=== PATIENT | female | born 1950 | race Caucasian/White ===

== ENCOUNTER → 2017-07-02 | Outpatient (CLI) | payer MEDICARE, OTHER ==
--- NOTE | 2017-07-02 14:36 | BD ---
EXAMINATION TYPE: MG DEXA axial skeleton. DATE OF EXAM: 07/02/2017 COMPARISON: NONE CLINICAL HISTORY: Postmenopausal female. Osteoporosis screening. Height: 5 FT 4 1/4 IN Weight: 212 FRAX RISK QUESTIONS: Alcohol (3 or more units per day): NO Family History (Parent hip fracture): NO Glucocorticoids (More than 3mos): NO (Ex: prednisone, prednisolone, methylprednisolone, dexamethasone, and hydrocortisone). History of Fracture in Adulthood: YES Secondary Osteoporosis: 1. Type 1 Diabetes: NO 2. Hyperthyroidism: NO 3. Menopause before 45: NO 4. Malnutrition: NO 5. Chronic liver disease: NO Rheumatoid Arthritis: NO Current Tobacco Use: NO RISK FACTORS HISTORY OF: History of Wrist Fracture: LT When: AROUND 31 Family History of Osteoporosis: YES Active: YES Postmenopausal woman: AGE 48 Lost more than 2 inches in height since high school: YES MEDICATIONS: How Long: Additional Medications: NONE Additional History: EXAM MEASUREMENTS: Bone mineral densitometry was performed using the [employer] System. Bone mineral density as measured about the Lumbar spine is: ----- L1-L4(G/cm2): 1.094 T Score Values are as follows: ----- L2: -0.5 ----- L3: -0.5 ----- L4: -0.6 ----- L1-L4: -0.7 Bone mineral density has: INCREASED 2.7 % since study of: 2013 Bone mineral density about the R hip (g/cm2): 0.767 Bone mineral density about the L hip (g/cm2): 0.860 T Score values are as follows: -----R Neck: -1.9 -----L Neck: -1.3 -----R Total: -1.4 -----L Total: -0.6 Bone mineral density has: DECREASED -1.1 % since study of: 2013 IMPRESSION: Osteopenia (T Score between -2.5 and -1). There is slightly increased risk of fracture and the patient may be considered for treatment. Re-Screen 2-5 years. NOTE: T-SCORE=SD OF THE YOUNG ADULT MEAN.
--- NOTE | 2017-07-03 14:58 | MM ---
Reason for exam: screening (asymptomatic). Last mammogram was performed 4 years ago. History: Patient is postmenopausal and had first child at age 37. Family history of breast cancer in paternal aunt. Benign stereotactic core biopsy of the left breast, January 19, 2004. Benign excisional biopsy of the left breast, September 24, 2001. Core biopsy of the left breast. Physical Findings: A clinical breast exam by your physician is recommended on an annual basis and results should be correlated with mammographic findings. MG 3D Screening Mammo W/Cad Bilateral CC and MLO view(s) were taken. Prior study comparison: June 21, 2013, bilateral digital screening mammo w/CAD. February 13, 2012, bilateral digital screening mammo w/CAD. There are scattered fibroglandular densities. There is no discrete abnormality. No significant changes when compared with prior studies. ASSESSMENT: Negative, BI-RAD 1 RECOMMENDATION: Routine screening mammogram of both breasts in 1 year.
== END | disposition home or self-care (01) ==
LOC: RADMAMWWP 13:33
PROVIDERS: ATTEND Family Medicine
DX: Z12.31 Encounter for screening mammogram for malignant neoplasm of breast (principal); M85.88 Other specified disorders of bone density and structure, other site
CPT/HCPCS: 77063; 77067; 77080

== ENCOUNTER → 2018-07-05 | Outpatient (CLI) | payer MEDICARE ==
--- NOTE | 2018-07-07 11:41 | MM ---
Reason for exam: screening (asymptomatic). Last mammogram was performed 1 year ago. History: Patient is postmenopausal and had first child at age 37. Family history of breast cancer in paternal aunt. Benign stereotactic core biopsy of the left breast, January 19, 2004. Benign excisional biopsy of the left breast, September 24, 2001. Core biopsy of the left breast. Physical Findings: A clinical breast exam by your physician is recommended on an annual basis and results should be correlated with mammographic findings. MG 3D Screening Mammo W/Cad Bilateral CC and MLO view(s) were taken. Prior study comparison: July 02, 2017, bilateral MG 3d screening mammo w/cad. June 21, 2013, bilateral digital screening mammo w/CAD. There are scattered fibroglandular densities. Previous mammotome biopsy in the left breast. There is chronic nodularity in the right breast. No significant changes when compared with prior studies. ASSESSMENT: Negative, BI-RAD 1 RECOMMENDATION: Routine screening mammogram of both breasts in 1 year.
== END ==
LOC: RADMAMWWP 07:17
PROVIDERS: ATTEND Family Medicine
DX: Z12.31 Encounter for screening mammogram for malignant neoplasm of breast (principal)
CPT/HCPCS: 77063; 77067

== ENCOUNTER 2020-01-20 09:16 | Emergency (ER) | payer MEDICARE ==
[2020-01-20] MEDS ORDERED: SODIUM CHLORIDE 0.9% 1,000 ML IV ONE (10:00)
--- NOTE | 2020-01-20 10:22 | ED ---
Weakness HPI - General Chief complaint: Weakness Stated complaint: weakness Time Seen by Provider: 01/20/20 09:25 Source: patient Mode of arrival: wheelchair Limitations: no limitations - History of Present Illness Initial comments: 69-year-old female presenting today for chief complaint of generalized weakness. Patient states she has no other symptoms besides feeling increased tired fatigue and generalized weakness she denies localized weakness she denies headaches neck stiffness fevers cough congestion nausea vomiting diarrhea chest pain shortness of breath visual changes patient denies any fall secondary to weakness. Patient denies any back pain. Patient denies abdominal pain, urinary symptoms denies bloody stools. Patient states she did have some congestion last Thursday other than that no symptoms. Patient denies having any thyroid disorder she denies history of anemia she denies any previous heart history or CVA. Patient states she does not take any medications for diabetes or hypertension. She states she also has had decreased appetite but otherwise just weak and going to bed at 7pm for past 4-5 days. - Related Data Home Medications Medication Instructions Recorded Confirmed Bacillus Coagulans [Digestive 1 tab PO DAILY 01/20/20 01/20/20 Advantage] Fluvastatin Sodium 20 mg PO DAILY 01/20/20 01/20/20 Multivitamins, Thera [Multivitamin 1 tab PO DAILY 01/20/20 01/20/20 (formulary)] Allergies Allergy/AdvReac Type Severity Reaction Status Date / Time codeine Allergy Hallucinati Verified 01/20/20 10:05 ons Review of Systems ROS Statement: Those systems with pertinent positive or pertinent negative responses have been documented in the HPI. ROS Other: All systems not noted in ROS Statement are negative. Past Medical History Past Medical History: Hyperlipidemia History of Any Multi-Drug Resistant Organisms: None Reported Past Surgical History: Cholecystectomy Past Psychological History: No Psychological Hx Reported Smoking Status: Never smoker Past Alcohol Use History: None Reported Past Drug Use History: None Reported General Exam - General Exam Comments Initial Comments: General: The patient is awake and alert, in no distress Eye: Pupils are equal, round and reactive to light, extra-ocular movements are intact. No nystagmus. There is normal conjunctiva bilaterally. No signs of icterus. Ears, nose, mouth and throat: There are moist mucous membranes and no oral lesions. Neck: The neck is supple, there is no tenderness or JVD. Cardiovascular: There is a regular rate and rhythm. No murmur, rub or gallop is appreciated. Respiratory: Lungs are clear to auscultation, respirations are non-labored, breath sounds are equal. No wheezes, stridor, rales, or rhonchi. Gastrointestinal: Soft, non-distended, non-tender abdomen without masses or organomegaly noted. There is no rebound or guarding present Musculoskeletal: Normal ROM, no tenderness. Strength 5/5. Sensation intact. Radial pulses equal bilaterally 2+. Neurological: A&O x 3. CN II-XII intact, There are no obvious motor or sensory deficits. Coordination appears grossly intact. Speech is normal. Skin: Skin is warm and dry and no rashes or lesions are noted. No LE edema, no calf pain. Psychiatric: Cooperative, appropriate mood & affect, normal judgment. Limitations: no limitations Course Vital Signs 01/20/20 01/20/20 09:17 12:10 Temperature 98.9 F 97 F L Pulse Rate 82 74 Respiratory 20 18 Rate Blood Pressure 133/80 141/75 O2 Sat by Pulse 94 L Oximetry Medical Decision Making - Medical Decision Making Labz stable. UA unremarkable. no CP no SOB. troponin (-). CXR clear. No ekg changes concerning for acute process. pt appears nontoxic. covid pending. TSH WNL. and at this time after discussing/reviewing case with attending Asa we feel pateint is stable for discharge. - Lab Data Result diagrams: 01/20/20 10:01/20/20 10:09 Lab Results 01/20/20 01/20/20 01/20/20 Range/Units 10:09 10:09 10:09 WBC 6.4 (3.8-10.6) k/uL RBC 5.25 (3.80-5.40) m/uL Hgb 14.6 (11.4-16.0) gm/dL Hct 43.9 (34.0-46.0) % MCV 83.6 (80.0-100.0) fL MCH 27.9 (25.0-35.0) pg MCHC 33.3 (31.0-37.0) g/dL RDW 13.4 (11.5-15.5) % Plt Count 147 L (150-450) k/uL MPV 7.3 Neutrophils % 70 % Lymphocytes % 19 % Monocytes % 8 % Eosinophils % 0 % Basophils % 1 % Neutrophils # 4.5 (1.3-7.7) k/uL Lymphocytes # 1.2 (1.0-4.8) k/uL Monocytes # 0.5 (0-1.0) k/uL Eosinophils # 0.0 (0-0.7) k/uL Basophils # 0.0 (0-0.2) k/uL PT 9.7 (9.0-12.0) sec INR 0.9 (<1.2) APTT 24.4 (22.0-30.0) sec Sodium (137-145) mmol/L Potassium (3.5-5.1) mmol/L Chloride (98-107) mmol/L Carbon Dioxide (22-30) mmol/L Anion Gap mmol/L BUN (7-17) mg/dL Creatinine (0.52-1.04) mg/dL Est GFR (CKD-EPI)AfAm (>60 ml/min/1.73 sqM) Est GFR (CKD-EPI)NonAf (>60 ml/min/1.73 sqM) Glucose (74-99) mg/dL Plasma Lactic Acid Terrell (0.7-2.0) mmol/L Calcium (8.4-10.2) mg/dL Phosphorus (2.5-4.5) mg/dL Magnesium (1.6-2.3) mg/dL Total Bilirubin (0.2-1.3) mg/dL AST (14-36) U/L ALT (4-34) U/L Alkaline Phosphatase (38-126) U/L Troponin I (0.000-0.034) ng/mL Total Protein (6.3-8.2) g/dL Albumin (3.5-5.0) g/dL TSH (0.465-4.680) mIU/L Urine Color Yellow Urine Appearance Clear (Clear) Urine pH 5.0 (5.0-8.0) Ur Specific [place] 1.015 (1.001-1.035) Urine Protein Negative (Negative) Urine Glucose (UA) Negative (Negative) Urine Ketones Negative (Negative) Urine Blood Negative (Negative) Urine Nitrite Negative (Negative) Urine Bilirubin Negative (Negative) Urine Urobilinogen <2.0 (<2.0) mg/dL Ur Leukocyte Esterase Negative (Negative) 01/20/20 01/20/20 01/20/20 Range/Units 10:09 10:09 10:09 WBC (3.8-10.6) k/uL RBC (3.80-5.40) m/uL Hgb (11.4-16.0) gm/dL Hct (34.0-46.0) % MCV (80.0-100.0) fL MCH (25.0-35.0) pg MCHC (31.0-37.0) g/dL RDW (11.5-15.5) % Plt Count (150-450) k/uL MPV Neutrophils % % Lymphocytes % % Monocytes % % Eosinophils % % Basophils % % Neutrophils # (1.3-7.7) k/uL Lymphocytes # (1.0-4.8) k/uL Monocytes # (0-1.0) k/uL Eosinophils # (0-0.7) k/uL Basophils # (0-0.2) k/uL PT (9.0-12.0) sec INR (<1.2) APTT (22.0-30.0) sec Sodium 138 (137-145) mmol/L Potassium 4.5 (3.5-5.1) mmol/L Chloride 105 (98-107) mmol/L Carbon Dioxide 27 (22-30) mmol/L Anion Gap 6 mmol/L BUN 15 (7-17) mg/dL Creatinine 0.82 (0.52-1.04) mg/dL Est GFR (CKD-EPI)AfAm 85 (>60 ml/min/1.73 sqM) Est GFR (CKD-EPI)NonAf 74 (>60 ml/min/1.73 sqM) Glucose 119 H (74-99) mg/dL Plasma Lactic Acid Terrell 1.0 (0.7-2.0) mmol/L Calcium 8.8 (8.4-10.2) mg/dL Phosphorus 4.0 (2.5-4.5) mg/dL Magnesium 2.0 (1.6-2.3) mg/dL Total Bilirubin 0.7 (0.2-1.3) mg/dL AST 35 (14-36) U/L ALT 22 (4-34) U/L Alkaline Phosphatase 87 (38-126) U/L Troponin I <0.012 (0.000-0.034) ng/mL Total Protein 7.3 (6.3-8.2) g/dL Albumin 4.1 (3.5-5.0) g/dL TSH 0.885 (0.465-4.680) mIU/L Urine Color Urine Appearance (Clear) Urine pH (5.0-8.0) Ur Specific [place] (1.001-1.035) Urine Protein (Negative) Urine Glucose (UA) (Negative) Urine Ketones (Negative) Urine Blood (Negative) Urine Nitrite (Negative) Urine Bilirubin (Negative) Urine Urobilinogen (<2.0) mg/dL Ur Leukocyte Esterase (Negative) Disposition Clinical Impression: Fatigue, Generalized weakness Disposition: HOME SELF-CARE Condition: Good Instructions (If sedation given, give patient instructions): Weakness (ED), Fatigue (ED) Additional Instructions: Please use medication as discussed. Please follow-up with family doctor in the next 2 days. Please return to emergency room if the symptoms increase or worsen or for any other concerns. Is patient prescribed a controlled substance at d/c from ED?: No Referrals: Maciel Peterson DO [Primary Care Provider] - 1-2 days Time of Disposition: 11:42
[2020-01-20 10:43] LABS: Albumin 4.1 g/dL (3.5-5.0); Calcium 8.8 mg/dL (8.4-10.2); Potassium 4.5 mmol/L (3.5-5.1); Total Bilirubin 0.7 mg/dL (0.2-1.3); Total Protein 7.3 g/dL (6.3-8.2)
[2020-01-20 10:51] LABS: INR 0.9 (<1.2); Partial Thromboplastin Time 24.4 sec (22.0-30.0); Prothrombin Time 9.7 sec (9.0-12.0)
--- NOTE | 2020-01-20 10:55 | XR ---
EXAMINATION TYPE: XR chest 2V DATE OF EXAM: 01/20/2020 COMPARISON: NONE TECHNIQUE: PA and lateral views submitted. HISTORY: Fatigue FINDINGS: The lungs are clear and there is no pneumothorax, pleural effusion, or focal pneumonia. Hypertrophi c change spine IMPRESSION: 1. No acute process.
[2020-01-20 11:15] LABS: Basophils % (A) 1 %; Eosinophils % (A) 0 %; HCT 43.9 % (34.0-46.0); HGB 14.6 gm/dL (11.4-16.0); Lymphocytes # (A) 1.2 k/uL (1.0-4.8); Lymphocytes % (A) 19 %; MCH 27.9 pg (25.0-35.0); MCHC 33.3 g/dL (31.0-37.0); MCV 83.6 fL (80.0-100.0); Mean Platelet Volume 7.3; Monocytes # (A) 0.5 k/uL (0-1.0); Monocytes % (A) 8 %; Neutrophils # (A) 4.5 k/uL (1.3-7.7); Neutrophils % (A) 70 %; Platelet Count 147 k/uL (150-450); RBC 5.25 m/uL (3.80-5.40); RDW 13.4 % (11.5-15.5); WBC 6.4 k/uL (3.8-10.6)
[2020-01-20 12:11] VITALS: BP 141/75; PULSE 74; RESP 18; TEMP 97
[2020-01-20 12:12] LABS: Appearance,Urine Clear (Clear); Bilirubin,Urine Negative (Negative); Blood,Urine Negative (Negative); Color,Urine Yellow; Glucose,Urine (UA) Negative (Negative); Ketones,Urine Negative (Negative); Leukocyte Esterase,Urine Negative (Negative); Nitrite,Urine Negative (Negative); Protein,Urine Negative (Negative); Specific Gravity,Urine 1.015 (1.001-1.035); Urobilinogen,Urine <2.0 mg/dL (<2.0)
== END 2020-01-20 12:14 | disposition home or self-care (01) ==
LOC: EC 09:16
DX: U07.1 COVID-19 (principal); E78.5 Hyperlipidemia, unspecified; Z79.899 Other long term (current) drug therapy; Z88.5 Allergy status to narcotic agent; Z90.49 Acquired absence of other specified parts of digestive tract
CPT/HCPCS: 36415; 93005; 80053; 83605; 83735; 84100; 84443; 84484; 85025; 85610; 85730; 81003; 71046; 99285; 96360; 96361; U0003

== ENCOUNTER 2020-01-21 21:40 | Inpatient (IN) | payer MEDICARE ==
[2020-01-21] MEDS ORDERED: ACETAMINOPHEN TAB 500 MG TAB PO STA (22:18)
[2020-01-21 23:20] LABS: C Reactive Protein 19.9 mg/L (<10.0); Calcium 8.8 mg/dL (8.4-10.2); Magnesium 1.9 mg/dL (1.6-2.3); Potassium 4.2 mmol/L (3.5-5.1); Total Bilirubin 0.5 mg/dL (0.2-1.3); Total Protein 7.2 g/dL (6.3-8.2)
[2020-01-21 23:22] LABS: Basophils # (A) 0.1 k/uL (0-0.2); Basophils % (A) 2 %; Eosinophils % (A) 0 %; HCT 42.6 % (34.0-46.0); HGB 14.3 gm/dL (11.4-16.0); Lymphocytes % (A) 20 %; MCH 27.9 pg (25.0-35.0); MCHC 33.6 g/dL (31.0-37.0); Mean Platelet Volume 7.4; Monocytes # (A) 0.3 k/uL (0-1.0); Monocytes % (A) 6 %; Neutrophils # (A) 3.8 k/uL (1.3-7.7); Neutrophils % (A) 71 %; Platelet Count 138 k/uL (150-450); RBC 5.14 m/uL (3.80-5.40); RDW 13.4 % (11.5-15.5); WBC 5.3 k/uL (3.8-10.6)
[2020-01-21 23:23] LABS: Appearance,Urine Clear (Clear); Bilirubin,Urine Negative (Negative); Blood,Urine Negative (Negative); Color,Urine Yellow; Glucose,Urine (UA) Negative (Negative); Ketones,Urine 1+ (Negative); Leukocyte Esterase,Urine Negative (Negative); Nitrite,Urine Negative (Negative); PH, Urine 5.5 (5.0-8.0); Protein,Urine Trace (Negative); Urobilinogen,Urine <2.0 mg/dL (<2.0)
[2020-01-21 23:37] LABS: INR 0.9 (<1.2); Prothrombin Time 9.5 sec (9.0-12.0)
--- NOTE | 2020-01-21 23:49 | XR ---
EXAMINATION TYPE: XR chest 1V portable DATE OF EXAM: 01/21/2020 COMPARISON: 01/20/2020 HISTORY: Pneumonia. Short of breath. TECHNIQUE: FINDINGS: Heart and mediastinum are normal. There is probably a small 2 cm pneumonia in the periphery of the left midlung. The other lung rowe are clear. There is no pleural effusion. There is no hear t failure. Bony thorax is intact. IMPRESSION: There is a small infiltrate in the lateral left midlung field that appears new compared t o yesterday..
[2020-01-21 23:50] LABS: D-Dimer 0.71 mg/L FEU (<0.60); Partial Thromboplastin Time 21.5 sec (22.0-30.0)
--- NOTE | 2020-01-22 00:36 | ED ---
General Adult HPI - General Chief complaint: Fever Stated complaint: Weakness,Revisit Time Seen by Provider: 01/21/20 22:17 Source: patient Mode of arrival: ambulatory Limitations: no limitations - History of Present Illness Initial comments: 69-year-old female patient presents to the emergency department today for evaluation of fever, generalized weakness, and fatigue. Patient states she's been having weakness and fatigue over the last week developed a fever for the first time today. She was evaluated yesterday in the emergency department and had extensive evaluation including labs and chest x-ray which were all relatively unremarkable. Patient states she has occasional cough, but denies any shortness of breath. States she has had some slight nausea but no vomiting. Denies any constipation or diarrhea. Denies any known sick contacts. Patient denies any recent rash, chest pain, abdominal pain, back pain, numbness, tingling, hematuria, dysuria, urinary urgency, urinary frequency, headache, visual changes, or any other complaints. - Related Data Home Medications Medication Instructions Recorded Confirmed Bacillus Coagulans [Digestive 1 tab PO DAILY 01/20/20 01/20/20 Advantage] Fluvastatin Sodium 20 mg PO DAILY 01/20/20 01/20/20 Multivitamins, Thera [Multivitamin 1 tab PO DAILY 01/20/20 01/20/20 (formulary)] Previous Rx's Medication Instructions Recorded Pyridoxine HCl (Vitamin B6) 100 mg PO DAILY 1 Days #1 tablet 01/20/20 [Vitamin B-6] Allergies Allergy/AdvReac Type Severity Reaction Status Date / Time codeine Allergy Hallucinati Verified 01/21/20 21:46 ons Review of Systems ROS Statement: Those systems with pertinent positive or pertinent negative responses have been documented in the HPI. ROS Other: All systems not noted in ROS Statement are negative. Past Medical History Past Medical History: Hyperlipidemia History of Any Multi-Drug Resistant Organisms: None Reported Past Surgical History: Cholecystectomy Past Psychological History: No Psychological Hx Reported Smoking Status: Never smoker Past Alcohol Use History: None Reported Past Drug Use History: None Reported General Exam Limitations: no limitations General appearance: alert, in no apparent distress, other (This is a well- developed, well-nourished) Eye exam: Present: normal appearance, PERRL, EOMI. Absent: scleral icterus, conjunctival injection, periorbital swelling ENT exam: Present: normal exam, normal oropharynx, mucous membranes moist Respiratory exam: Present: normal lung sounds bilaterally. Absent: respiratory distress, wheezes, rales, rhonchi, stridor Cardiovascular Exam: Present: regular rate, normal rhythm, normal heart sounds. Absent: systolic murmur, diastolic murmur, rubs, gallop, clicks GI/Abdominal exam: Present: soft, normal bowel sounds. Absent: distended, tenderness, guarding, rebound, rigid Neurological exam: Present: alert, oriented X3, CN II-XII intact Psychiatric exam: Present: normal affect, normal mood Skin exam: Present: warm, dry, intact, normal color. Absent: rash Course Vital Signs 01/21/20 01/21/20 01/21/20 21:42 22:01 23:42 Temperature 103.5 F H 101.9 F H 99.9 F H Pulse Rate 100 87 Respiratory 20 16 Rate Blood Pressure 147/86 O2 Sat by Pulse 92 L 92 L Oximetry EKG Findings - EKG Comments: EKG Findings:: EKG obtained at 2257 shows normal sinus rhythm with a ventricular rate of 86, [place] interval 172, QRS duration 92, QT 366, QTc 437. No evidence of ST elevation or depression. Medical Decision Making - Medical Decision Making 69-year-old female patient presented to the emergency department today for evaluation of new onset fever though she has had a one-week history of weakness and fatigue. Physical examination is unremarkable. Lungs are clear to auscultation. Initially oxygen saturations are 92% on room air. Temperature upon arrival is 103F oral. Labs reviewed and did reveal mildly elevated d- dimer. A normal white blood cell, chest x-ray did reveal a 2 cm area concerning for infiltrate. Her COVID-19 test was positive. We did obtain ambulatory pulse ox which was around 89% on room air. Patient will be given supplemental oxygen minutes to the hospital for further monitoring. She is agreeable with this plan. - Lab Data Result diagrams: 01/21/20 22:45 01/21/20 22:45 Lab Results 01/21/20 01/21/20 01/21/20 Range/Units 22:45 22:45 22:45 WBC 5.3 (3.8-10.6) k/uL RBC 5.14 (3.80-5.40) m/uL Hgb 14.3 (11.4-16.0) gm/dL Hct 42.6 (34.0-46.0) % MCV 83.0 (80.0-100.0) fL MCH 27.9 (25.0-35.0) pg MCHC 33.6 (31.0-37.0) g/dL RDW 13.4 (11.5-15.5) % Plt Count 138 L (150-450) k/uL MPV 7.4 Neutrophils % 71 % Lymphocytes % 20 % Monocytes % 6 % Eosinophils % 0 % Basophils % 2 % Neutrophils # 3.8 (1.3-7.7) k/uL Lymphocytes # 1.0 (1.0-4.8) k/uL Monocytes # 0.3 (0-1.0) k/uL Eosinophils # 0.0 (0-0.7) k/uL Basophils # 0.1 (0-0.2) k/uL PT 9.5 (9.0-12.0) sec INR 0.9 (<1.2) APTT 21.5 L (22.0-30.0) sec D-Dimer 0.71 H (<0.60) mg/L FEU Sodium (137-145) mmol/L Potassium (3.5-5.1) mmol/L Chloride (98-107) mmol/L Carbon Dioxide (22-30) mmol/L Anion Gap mmol/L BUN (7-17) mg/dL Creatinine (0.52-1.04) mg/dL Est GFR (CKD-EPI)AfAm (>60 ml/min/1.73 sqM) Est GFR (CKD-EPI)NonAf (>60 ml/min/1.73 sqM) Glucose (74-99) mg/dL Plasma Lactic Acid Terrell (0.7-2.0) mmol/L Calcium (8.4-10.2) mg/dL Magnesium (1.6-2.3) mg/dL Total Bilirubin (0.2-1.3) mg/dL AST (14-36) U/L ALT (4-34) U/L Alkaline Phosphatase (38-126) U/L Lactate Dehydrogenase (313-618) U/L C-Reactive Protein (<10.0) mg/L Total Protein (6.3-8.2) g/dL Albumin (3.5-5.0) g/dL Urine Color Yellow Urine Appearance Clear (Clear) Urine pH 5.5 (5.0-8.0) Ur Specific [place] 1.020 (1.001-1.035) Urine Protein Trace H (Negative) Urine Glucose (UA) Negative (Negative) Urine Ketones 1+ H (Negative) Urine Blood Negative (Negative) Urine Nitrite Negative (Negative) Urine Bilirubin Negative (Negative) Urine Urobilinogen <2.0 (<2.0) mg/dL Ur Leukocyte Esterase Negative (Negative) Coronavirus (PCR) (Not Detectd) Influenza Type A RNA (Not Detectd) Influenza Type B (PCR) (Not Detectd) 01/21/20 01/21/20 01/21/20 Range/Units 22:45 22:45 22:45 WBC (3.8-10.6) k/uL RBC (3.80-5.40) m/uL Hgb (11.4-16.0) gm/dL Hct (34.0-46.0) % MCV (80.0-100.0) fL MCH (25.0-35.0) pg MCHC (31.0-37.0) g/dL RDW (11.5-15.5) % Plt Count (150-450) k/uL MPV Neutrophils % % Lymphocytes % % Monocytes % % Eosinophils % % Basophils % % Neutrophils # (1.3-7.7) k/uL Lymphocytes # (1.0-4.8) k/uL Monocytes # (0-1.0) k/uL Eosinophils # (0-0.7) k/uL Basophils # (0-0.2) k/uL PT (9.0-12.0) sec INR (<1.2) APTT (22.0-30.0) sec D-Dimer (<0.60) mg/L FEU Sodium 136 L (137-145) mmol/L Potassium 4.2 (3.5-5.1) mmol/L Chloride 104 (98-107) mmol/L Carbon Dioxide 26 (22-30) mmol/L Anion Gap 6 mmol/L BUN 12 (7-17) mg/dL Creatinine 0.86 (0.52-1.04) mg/dL Est GFR (CKD-EPI)AfAm 81 (>60 ml/min/1.73 sqM) Est GFR (CKD-EPI)NonAf 70 (>60 ml/min/1.73 sqM) Glucose 123 H (74-99) mg/dL Plasma Lactic Acid Terrell 0.9 (0.7-2.0) mmol/L Calcium 8.8 (8.4-10.2) mg/dL Magnesium 1.9 (1.6-2.3) mg/dL Total Bilirubin 0.5 (0.2-1.3) mg/dL AST 40 H (14-36) U/L ALT 23 (4-34) U/L Alkaline Phosphatase 97 (38-126) U/L Lactate Dehydrogenase 536 (313-618) U/L C-Reactive Protein 19.9 H (<10.0) mg/L Total Protein 7.2 (6.3-8.2) g/dL Albumin 4.0 (3.5-5.0) g/dL Urine Color Urine Appearance (Clear) Urine pH (5.0-8.0) Ur Specific [place] (1.001-1.035) Urine Protein (Negative) Urine Glucose (UA) (Negative) Urine Ketones (Negative) Urine Blood (Negative) Urine Nitrite (Negative) Urine Bilirubin (Negative) Urine Urobilinogen (<2.0) mg/dL Ur Leukocyte Esterase (Negative) Coronavirus (PCR) (Not Detectd) Influenza Type A RNA Not Detected (Not Detectd) Influenza Type B (PCR) Not Detected (Not Detectd) 01/21/20 Range/Units 22:45 WBC (3.8-10.6) k/uL RBC (3.80-5.40) m/uL Hgb (11.4-16.0) gm/dL Hct (34.0-46.0) % MCV (80.0-100.0) fL MCH (25.0-35.0) pg MCHC (31.0-37.0) g/dL RDW (11.5-15.5) % Plt Count (150-450) k/uL MPV Neutrophils % % Lymphocytes % % Monocytes % % Eosinophils % % Basophils % % Neutrophils # (1.3-7.7) k/uL Lymphocytes # (1.0-4.8) k/uL Monocytes # (0-1.0) k/uL Eosinophils # (0-0.7) k/uL Basophils # (0-0.2) k/uL PT (9.0-12.0) sec INR (<1.2) APTT (22.0-30.0) sec D-Dimer (<0.60) mg/L FEU Sodium (137-145) mmol/L Potassium (3.5-5.1) mmol/L Chloride (98-107) mmol/L Carbon Dioxide (22-30) mmol/L Anion Gap mmol/L BUN (7-17) mg/dL Creatinine (0.52-1.04) mg/dL Est GFR (CKD-EPI)AfAm (>60 ml/min/1.73 sqM) Est GFR (CKD-EPI)NonAf (>60 ml/min/1.73 sqM) Glucose (74-99) mg/dL Plasma Lactic Acid Terrell (0.7-2.0) mmol/L Calcium (8.4-10.2) mg/dL Magnesium (1.6-2.3) mg/dL Total Bilirubin (0.2-1.3) mg/dL AST (14-36) U/L ALT (4-34) U/L Alkaline Phosphatase (38-126) U/L Lactate Dehydrogenase (313-618) U/L C-Reactive Protein (<10.0) mg/L Total Protein (6.3-8.2) g/dL Albumin (3.5-5.0) g/dL Urine Color Urine Appearance (Clear) Urine pH (5.0-8.0) Ur Specific [place] (1.001-1.035) Urine Protein (Negative) Urine Glucose (UA) (Negative) Urine Ketones (Negative) Urine Blood (Negative) Urine Nitrite (Negative) Urine Bilirubin (Negative) Urine Urobilinogen (<2.0) mg/dL Ur Leukocyte Esterase (Negative) Coronavirus (PCR) Detected A (Not Detectd) Influenza Type A RNA (Not Detectd) Influenza Type B (PCR) (Not Detectd) - Radiology Data Radiology results: report reviewed, image reviewed One view x-ray of the chest is obtained. Report is reviewed in its entirety. Impression by Dr. Marquez shows small infiltrate in the lateral left midlung field that appears new compared to yesterday. Disposition Clinical Impression: COVID-19, Viral pneumonia, Hypoxia Disposition: ADMITTED IP TO THIS HOSP Condition: Serious Referrals: Maciel Peterson DO [Primary Care Provider] - 1-2 days Decision to Admit Reason: Admit from EC Decision Date: 01/22/20 Decision Time: 00:34
[2020-01-22] MEDS ORDERED: ONDANSETRON 4 MG/2 ML VIAL IVP PRN (02:25)
[2020-01-22] MEDS ORDERED: IBUPROFEN 400 MG TAB PO PRN (02:25)
[2020-01-22] MEDS ORDERED: NALOXONE 0.4 MG/ML 1 ML VIAL IV PRN (02:25)
[2020-01-22] MEDS: SODIUM CHLORIDE 0.9% 1,000 ML IV SCH ×2 (03:20→16:41)
[2020-01-22] MEDS: AZITHROMYCIN 500 MG in SODIUM CHLORIDE 0.9% 250 ML IVPB SCH (04:54)
[2020-01-22 10:01] LABS: Ferritin 85.9 ng/mL (10.0-291.0)
--- NOTE | 2020-01-22 11:22 | P.HPIM ---
History of Present Illness H&P Date: 01/22/20 History of present illness This is a 69-year-old patient of Dr. Peterson who presented to the emergency room complaining of fatigue. Patient states that she has been extremely tired and fatigued for the last week. She came to the emergency room on due to the weakness and fatigue at that time she was not tested for Covid and did not experience any shortness of breath congestion and fever nausea vomiting or rash. Due to the increase in her weakness and fatigue the patient returned to the emergency room yesterday where she was found to have a positive Covid test. Patient still denies any shortness of breath congestion she did experience a fever yesterday. No nausea vomiting or rashes. At this time patient is resting comfortably stating that she is feeling much better compared to yesterday. Patient's past medical history is only significant for hyperlipidemia. Review Of Systems: Constitutional: Reports fever, reports chills 1, no night sweats. No weight change. Reports weakness and fatigue no lethargy. No daytime sleepiness. EENT: No headache. No blurred vision or double vision, no loss of vision. No loss of Hearing, no ringing in the ears, no dizziness. No nasal drainage or congestion. No epistaxis. No sore throat. Lungs: No shortness of breath, cough, no sputum production. No wheezing. Cardiovascular: No chest pain, no lower extremity edema. No palpitations. No paroxysmal nocturnal dyspnea. No orthopnea. No lightheadedness or dizziness. No syncopal episodes. Abdominal: no abdominal discomfort. No nausea, vomiting. no diarrhea. No constipation. No bloody or tarry stools. no loss of appetite. Genitourinary: No dysuria, increased frequency, urgency. No urinary retention. Musculoskeletal: No myalgias. No muscle weakness, no gait dysfunction, no frequent falls. No back pain. No neck pain. Integumentary: No wounds, no lesions. No rash or pruritus. No unusual bruising. No change in hair or nails. Neurologic: No aphasia. No facial droop. No change in mentation. No head injury. No headache. No paralysis. No paresthesia. Psychiatric: No depression. No anxiety. No mood swings. Endocrine: No abnormal blood sugars. No weight change. No excessive sweating or thirst. Social history: Nonsmoker, occasional EtOH, denies recreational drug use including marijuana Family history: Patient is with one adult son who is healthy, he she has one brother who is also healthy. Her mother is at 83 due to brain tumor and her father at 90 to kidney failure. 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 Physical examination General Appearance: Alert, cooperative, no distress, appears stated age. Neck HEENT: Supple, no lymphadenopathy, no thyroid enlargement, no carotid bruits. Lungs: Clear to auscultation without crackles or wheezes no rhonchi, no deformity. Chest Wall: Chest wall normal expansion with deep inspiration no tenderness and no deformity was found on exam, no costochondral pain or discomfort. Heart: Regular rate and rhythm, S1, S2 normal, no murmur, rub or gallop. Back: Symmetric, no curvature, ROM normal, no CVA tenderness. Abdomen: Soft, non-tender, no rebound or rigidity, no hepatosplenomegaly. Extremities: Extremities normal, atraumatic, no cyanosis or edema. Pulses: 2+ and symmetric. Skin: Skin color, texture, tugor normal, no rashes or lesions. Neurologic: Alert oriented x3 cranial nerves II through XII intact, no motor deficit, no abnormal balance or gait Assessment and plan: 1. Covid positive pneumonitis Zithromax 500 mg IV daily, Rocephin 1 g daily, vitamin D3 2000 units by mouth daily, Decadron 6 mg IV daily, multivitamin, zinc 220 milligrams daily, A1c 500 mg daily 2. Hypoxia related to Covid 19 maintain pulse ox greater than 90% 3. Constitutional fatigue and weakness related to Covid 19, 4. Fever and chill related to Covid 19 acetaminophen 5. Hyperlipidemia Lipitor 10 mg by mouth at bedtime 6. GI prophylaxis Protonix 40 mg daily 7. DVT prophylaxis Lovenox 40 mg twice a day Impression and plan of care have been directed as dictated by the signing physician. Tish Mendez nurse practitioner acting as scribe for signing physician. Past Medical History Past Medical History: Hyperlipidemia History of Any Multi-Drug Resistant Organisms: None Reported Past Surgical History: Cholecystectomy Past Psychological History: No Psychological Hx Reported Smoking Status: Never smoker Past Alcohol Use History: None Reported Past Drug Use History: None Reported Medications and Allergies Home Medications Medication Instructions Recorded Confirmed Type Fluvastatin Sodium 20 mg PO HS 01/20/20 01/22/20 History Multivitamins, Thera [Multivitamin 1 tab PO HS 01/20/20 01/22/20 History (formulary)] Crispin Back And Body 1 - 2 tab PO Q12H PRN 01/22/20 01/22/20 History Allergies Allergy/AdvReac Type Severity Reaction Status Date / Time codeine Allergy Hallucinati Verified 01/22/20 07:57 ons Physical Exam Vitals: Vital Signs Temp Pulse Resp BP Pulse Ox 01/22/20 10:00 98.9 F 76 18 149/80 94 L 01/22/20 05:00 18 01/22/20 03:24 98.3 F 75 14 155/87 97 01/21/20 23:42 99.9 F H 87 16 92 L 01/21/20 22:01 101.9 F H 01/21/20 21:42 103.5 F H 100 20 147/86 92 L Intake and Output 01/21/20 01/22/20 01/22/20 22:59 06:59 14:59 Other: Weight 92.986 kg Results CBC & Chem 7: 01/21/20 22:45 01/21/20 22:45 Labs: Abnormal Lab Results - Last 24 Hours (Table) 01/21/20 01/21/20 01/21/20 Range/Units 22:45 22:45 22:45 Plt Count 138 L (150-450) k/uL APTT 21.5 L (22.0-30.0) sec D-Dimer 0.71 H (<0.60) mg/L FEU Sodium (137-145) mmol/L Glucose (74-99) mg/dL AST (14-36) U/L C-Reactive Protein (<10.0) mg/L Urine Protein Trace H (Negative) Urine Ketones 1+ H (Negative) Coronavirus (PCR) (Not Detectd) 01/21/20 01/21/20 Range/Units 22:45 22:45 Plt Count (150-450) k/uL APTT (22.0-30.0) sec D-Dimer (<0.60) mg/L FEU Sodium 136 L (137-145) mmol/L Glucose 123 H (74-99) mg/dL AST 40 H (14-36) U/L C-Reactive Protein 19.9 H (<10.0) mg/L Urine Protein (Negative) Urine Ketones (Negative) Coronavirus (PCR) Detected A (Not Detectd)
[2020-01-22] MEDS: DEXAMETHASONE SOD PHOSPHATE 10 MG/ML 1 ML VIAL IV SCH (11:46)
[2020-01-22] MEDS: CHOLECALCIFEROL 1,000 UNIT TAB PO SCH (11:46)
[2020-01-22] MEDS: ENOXAPARIN 40 MG/0.4 ML SYRINGE SQ SCH ×2 (11:46→22:51)
[2020-01-22] MEDS: ASCORBIC ACID 500 MG TAB PO SCH (11:46)
[2020-01-22] MEDS: PANTOPRAZOLE 40 MG/10 ML VIAL IVP SCH (11:47)
[2020-01-22] MEDS: ZINC SULFATE 220 MG CAP PO SCH (11:47)
[2020-01-22] MEDS: ACETAMINOPHEN TAB 325 MG TAB PO PRN ×2 (11:59→17:47)
--- NOTE | 2020-01-22 12:14 | CONS ---
CONSULTATION PULMONARY/CRITICAL CARE CONSULTATION: DATE OF CONSULTATION: January 22, 2020 HISTORY OF PRESENT ILLNESS: This is a patient who is 69 years of age. The patient presented to the emergency department on January 21 at 2:25 in the morning with complaints of just not feeling well. She had generalized weakness and fatigue. She also had a bit of a temperature elevation. She denies any shortness of breath, chest tightness, wheezing, cough or phlegm production. She was in the emergency department yesterday and apparently was evaluated with similar blood testing and x-rays, and was discharged home. She is back in today. The patient again denies any respiratory complaints. It says here in the ER [place] she has occasional cough, but she really denies that. Her chest x-ray previously was normal. A repeat chest x-ray maybe shows a minimal infiltrate of anything in the left mid lung. Not very impressive. Anyway, the patient is here in the ER. She is currently on 3 L nasal cannula. She is getting saline at 75 mL an hour. She has no respiratory issues whatsoever. She denies any nausea, vomiting, diarrhea, or abdominal pain. She denies any genitourinary complaints. HOME MEDICATIONS: Include digestive Advantage, fluvastatin for her hyperlipidemia and vitamins. She still takes vitamin B6. ALLERGIES: CODEINE. MEDICAL HISTORY: Hyperlipidemia. SURGICAL HISTORY: Includes only cholecystectomy. SOCIAL HISTORY: Negative tobacco, alcohol or illicit drug use. FAMILY HISTORY: Noncontributory. REVIEW OF SYSTEMS: CONSTITUTIONAL weakness, fatigue. NEUROLOGIC negative. HEENT negative. CARDIOVASCULAR negative. PULMONARY negative. GI negative. negative. RHEUMATOLOGIC negative. IMMUNOLOGIC negative. ENDOCRINOLOGIC negative. DERMATOLOGIC negative. PHYSICAL EXAMINATION: VITAL SIGNS: Current vital signs: Temperature 98.3, T-max is 103.5, heart rate 75, respiratory rate 14, blood pressure 155/87, mean 109. 2 L saturation 97%. Room-air saturation 92%. GENERAL: Appears in no acute distress. No respiratory. No respiratory issues including conversational dyspnea, audible wheezing or use of accessory muscles. HEENT: Examination is grossly unremarkable. Nasal O2 noted at 2 L. NECK: Supple. Full range of motion. No adenopathy. Neck veins are flat. CARDIOVASCULAR: Examination reveals regular rhythm and rate. Heart rate 75. S1-S2 normal. No S3, S4, or murmur. LUNGS: Reveal clear breath sounds equal. No wheezes, rhonchi, or crackles. ABDOMEN: Soft, but obese. Bowel sounds are heard. EXTREMITIES are intact. No cyanosis, clubbing, or edema. SKIN: Without rash. NEUROLOGIC: Examination is nonfocal. LABS: Reviewed. White count 5.3, hemoglobin 14.3, hematocrit 42.6, platelet count 138,000, PT/INR normal. PTT is 21.5. D-dimer 0.71. Sodium 136, potassium 4.2 chloride 104. CO2 26. Anion gap is 6. BUN and creatinine were 12 and 0.86, glucose 123, AST 40. C- reactive protein 19.9. Urine is clean. Covid testing was positive. Chest x-ray maybe shows a minimal infiltrate in the left mid lung. That x-ray on the was compared to the previous x-ray. Current medications are reviewed. She is on Tylenol, Lipitor, Zithromax, Rocephin, Decadron, Lovenox, ibuprofen, multivitamins, Narcan, and Zofran. She is also getting saline IV at 75 mL an hour. ASSESSMENT: 1. Covid positive patient primarily with fatigue and weakness, and devoid of all pulmonary complaints. 2. Minimal vague infiltrate left mid lung, could be a developing pneumonia although the patient really lacks any pulmonary complaints at this time. 3. History of hyperlipidemia. 4. Previous cholecystectomy. 5. Fever, secondary to COVID-19 infection. PLAN: This is a patient in my opinion, that could really be managed at home. She could be discharged home on some oral antibiotics. There was some concern about pneumonia in the left mid lung. She could also be sent home on 7 or so days of Decadron 6 mg orally and recommended take vitamin C, vitamin D, and zinc. Fever control to be managed with alternating Tylenol and ibuprofen. No additional recommendations are made. We will continue to follow if she does get admitted to the hospital. MMODL / IJN: [id number] /
[2020-01-22] MEDS: ATORVASTATIN 10 MG TAB PO SCH (22:51)
[2020-01-22] MEDS: MULTIVITAMINS, THERA 1 EACH TAB PO SCH (22:51)
[2020-01-23] MEDS: AZITHROMYCIN 500 MG in SODIUM CHLORIDE 0.9% 250 ML IVPB SCH (03:10)
[2020-01-23] MEDS: SODIUM CHLORIDE 0.9% 1,000 ML IV SCH ×2 (03:11→10:11)
[2020-01-23 05:14] LABS: Basophils % (A) 0 %; Eosinophils % (A) 1 %; HCT 38.3 % (34.0-46.0); Lymphocytes # (A) 1.2 k/uL (1.0-4.8); Lymphocytes % (A) 21 %; MCH 28.2 pg (25.0-35.0); MCHC 33.9 g/dL (31.0-37.0); MCV 83.3 fL (80.0-100.0); Mean Platelet Volume 7.7; Monocytes # (A) 0.2 k/uL (0-1.0); Monocytes % (A) 4 %; Neutrophils # (A) 4.1 k/uL (1.3-7.7); Neutrophils % (A) 73 %; Platelet Count 142 k/uL (150-450); RDW 13.4 % (11.5-15.5); WBC 5.6 k/uL (3.8-10.6)
[2020-01-23] MEDS: ACETAMINOPHEN TAB 325 MG TAB PO PRN (06:05)
[2020-01-23 09:30] LABS: African American GFR (CKD) 87.8 (60.0-200.0); Albumin 3.5 g/dL (3.80-4.90); Albumin/Globulin Ratio 1.52 (1.60-3.17); Anion Gap 7.4 mmol/L (4.00-12.00); Calcium 8.2 mg/dL (8.7-10.3); Carbon Dioxide 25.6 mmol/L (21.6-31.8); Globulin 2.3 g/dL (1.6-3.3); Non-African American GFR(CKD) 75.8 (60.0-200.0); Potassium 3.8 mmol/L (3.5-5.5); Total Bilirubin 0.4 mg/dL (0.2-1.2); Total Protein 5.8 g/dL (6.2-8.2)
[2020-01-23] MEDS: CHOLECALCIFEROL 1,000 UNIT TAB PO SCH (10:09)
[2020-01-23] MEDS: ASCORBIC ACID 500 MG TAB PO SCH (10:09)
[2020-01-23] MEDS: ZINC SULFATE 220 MG CAP PO SCH (10:09)
[2020-01-23] MEDS: PANTOPRAZOLE 40 MG/10 ML VIAL IVP SCH (10:10)
[2020-01-23] MEDS: DEXAMETHASONE SOD PHOSPHATE 10 MG/ML 1 ML VIAL IV SCH (10:10)
[2020-01-23] MEDS: ENOXAPARIN 40 MG/0.4 ML SYRINGE SQ SCH ×2 (10:10→21:03)
--- NOTE | 2020-01-23 14:06 | P.PN ---
Subjective Progress Note Date: 01/23/20 History of present illness This is a 69-year-old patient of Dr. Peterson who presented to the emergency room complaining of fatigue. Patient states that she has been extremely tired and fatigued for the last week. She came to the emergency room on due to the weakness and fatigue at that time she was not tested for Covid and did not experience any shortness of breath congestion and fever nausea vomiting or rash. Due to the increase in her weakness and fatigue the patient returned to the emergency room yesterday where she was found to have a positive Covid test. Patient still denies any shortness of breath congestion she did experience a fever yesterday. No nausea vomiting or rashes. At this time patient is resting comfortably stating that she is feeling much better compared to yesterday. Patient's past medical history is only significant for hyperlipidemia. 01/22: : 19 is positive. Patient has been febrile with temperature max 101.1, heart rate 86, blood pressure 136/70, pulse ox 96% on 2 L nasal cannula. WBC 5.6, hemoglobin 13, platelet count 142. Electrolytes normal. Creatinine 0.8. Patient is currently maintained on azithromycin, ceftriaxone, dexamethasone, Lovenox and vitamin supplements. Patient has been seen by pulmonary medicine and cleared for discharge. We'll plan to monitor overnight, repeat chest x-ray in the morning and anticipate discharge home on Thursday. Review Of Systems: Constitutional: Reports fever, reports chills, no night sweats. No weight change. Reports weakness and fatigue no lethargy. No daytime sleepiness. EENT: No headache. No blurred vision or double vision, no loss of vision. No loss of Hearing, no ringing in the ears, no dizziness. No nasal drainage or congestion. No epistaxis. No sore throat. Lungs: No shortness of breath, cough, no sputum production. No wheezing. Cardiovascular: No chest pain, no lower extremity edema. No palpitations. No paroxysmal nocturnal dyspnea. No orthopnea. No lightheadedness or dizziness. No syncopal episodes. Abdominal: no abdominal discomfort. No nausea, vomiting. no diarrhea. No constipation. No bloody or tarry stools. no loss of appetite. Genitourinary: No dysuria, increased frequency, urgency. No urinary retention. Musculoskeletal: No myalgias. No muscle weakness, no gait dysfunction, no frequent falls. No back pain. No neck pain. Integumentary: No wounds, no lesions. No rash or pruritus. No unusual bruising. No change in hair or nails. Neurologic: No aphasia. No facial droop. No change in mentation. No head injury. No headache. No paralysis. No paresthesia. Psychiatric: No depression. No anxiety. No mood swings. Endocrine: No abnormal blood sugars. No weight change. No excessive sweating or thirst. Physical examination General Appearance: Alert, cooperative, no distress, appears stated age. No acute respiratory distress. Neck HEENT: Supple, no lymphadenopathy, no thyroid enlargement, no carotid bruits. Lungs: Clear to auscultation without crackles or wheezes no rhonchi, no deformity. Chest Wall: Chest wall normal expansion with deep inspiration no tenderness and no deformity was found on exam, no costochondral pain or discomfort. Heart: Regular rate and rhythm, S1, S2 normal, no murmur, rub or gallop. Back: Symmetric, no curvature, ROM normal, no CVA tenderness. Abdomen: Soft, non-tender, no rebound or rigidity, no hepatosplenomegaly. Extremities: Extremities normal, atraumatic, no cyanosis or edema. Pulses: 2+ and symmetric. Skin: Skin color, texture, tugor normal, no rashes or lesions. Neurologic: Alert oriented x3 cranial nerves II through XII intact, no motor deficit, no abnormal balance or gait Assessment and plan: 1. Covid positive pneumonitis Zithromax 500 mg IV daily, Rocephin 1 g daily, vitamin D3 2000 units by mouth daily, Decadron 6 mg IV daily, multivitamin, zinc 220 milligrams daily, vitamin C daily. Consult with pulmonary medicine. Repeat chest x-ray in the morning. 2. Hypoxia related to Covid 19 maintain pulse ox greater than 90% 3. Constitutional fatigue and weakness related to Covid 19, 4. Fever and chill related to Covid 19 acetaminophen 5. Hyperlipidemia Lipitor 10 mg by mouth at bedtime 6. GI prophylaxis Protonix 40 mg daily 7. DVT prophylaxis Lovenox 40 mg twice a day Discharge plan: Home on Thursday Impression and plan of care have been directed as dictated by the signing physician. Daksha Cornelius nurse practitioner acting as scribe for signing physician. Objective - Vital Signs Vital signs: Vital Signs Temp 98.4 F 01/23/20 06:11 Pulse 86 01/23/20 05:00 Resp 18 01/23/20 05:00 BP 136/78 01/23/20 05:00 Pulse Ox 96 01/23/20 05:00 Intake & Output 01/22/20 01/23/20 01/23/20 18:59 06:59 18:59 Intake Total 525 Balance 525 Intake: Intake, IV Titration 100 Amount cefTRIAXone 1 gm In 100 Sodium Chloride 0.9% 50 ml @ 100 mls/hr IVPB DAILY [facility] Rx#:[id number] Oral 425 Other: # Voids 3 # Bowel Movements 0 - Labs CBC & Chem 7: 01/23/20 04:47 01/23/20 04:47 Labs: Abnormal Lab Results - Last 24 Hours (Table) 01/23/20 Range/Units 04:47 Plt Count 142 L (150-450) k/uL Microbiology - Last 24 Hours (Table) 01/21/20 22:45 Blood Culture - Preliminary Blood No Growth after 24 hours
--- NOTE | 2020-01-23 15:36 | P.PN ---
Subjective Progress Note Date: 01/23/20 Principal diagnosis: Covid 19 pneumonitis 61-year-old white female patient of Dr. Hines who was admitted to the hospital on 01/21/2020 when she came in for evaluation of fatigue, however patient denied any symptoms of shortness of breath, fever, nausea, vomiting or rash. Her onset of symptoms was 7 days ago. Patient was evaluated in the emergency department on 01/20/2020, and was discharged home, her chest x-ray was clear of any pulmonary infiltrates, she had no shortness of breath or chest pain, her labs were stable, UA was unremarkable. On 01/22/2020 came back to the emergency department with complaints of fever, generalized weakness, and fatigue. Her chest x-ray on admission showed a small infiltrate in the lateral left mid lung field that appeared new compared to a previous chest x-ray completed on 01/20/2020. Her oxygenation has remained stable, room air pulse ox today is 96%, she still spiking fevers, with a T-max of 101.1 degrees Fahrenheit, hemodynamically stable. Her Covid 19 PCR was found positive. She denies any worsening of her symptoms. Objective - Vital Signs Vital signs: Vital Signs Temp 98.6 F 01/23/20 12:35 Pulse 80 01/23/20 12:35 Resp 18 01/23/20 12:35 BP 114/70 01/23/20 12:35 Pulse Ox 96 01/23/20 12:35 Intake & Output 01/22/20 01/23/20 01/23/20 18:59 06:59 18:59 Intake Total 525 450 Balance 525 450 Intake: Intake, IV Titration 100 450 Amount Sodium Chloride 0.9% 1, 400 000 ml @ 50 mls/hr IV . Q20H [facility] Rx#:[id number] cefTRIAXone 1 gm In 100 50 Sodium Chloride 0.9% 50 ml @ 100 mls/hr IVPB DAILY [facility] Rx#:[id number] Oral 425 Other: # Voids 3 # Bowel Movements 0 - Exam GENERAL EXAM: Alert, very pleasant, 69-year-old white female, on review, with a pulse of 96% comfortable in no apparent distress. HEAD: Normocephalic/atraumatic. EYES: Normal reaction of pupils, equal size. Conjunctiva pink, sclera white. NOSE: Clear with pink turbinates. THROAT: No erythema or exudates. NECK: No masses, no JVD, no thyroid enlargement, no adenopathy. CHEST: No chest wall deformity. Symmetrical expansion. LUNGS: Equal air entry with no crackles, wheeze, rhonchi or dullness. CVS: Regular rate and rhythm, normal S1 and S2, no gallops, no murmurs, no rubs ABDOMEN: Soft, nontender. No hepatosplenomegaly, normal bowel sounds, no guarding or rigidity. EXTREMITIES: No clubbing, no edema, no cyanosis, 2+ pulses and upper and lower extremities. MUSCULOSKELETAL: Muscle strength and tone normal. SPINE: No scoliosis or deformity SKIN: No rashes CENTRAL NERVOUS SYSTEM: Alert and oriented -3. No focal deficits, tone is normal in all 4 extremities. PSYCHIATRIC: Alert and oriented -3. Appropriate affect. Intact judgment and insight. - Labs CBC & Chem 7: 01/23/20 04:47 01/23/20 04:47 Labs: Abnormal Lab Results - Last 24 Hours (Table) 01/23/20 01/23/20 Range/Units 04:47 04:47 Plt Count 142 L (150-450) k/uL BUN 8.0 L (9.0-27.0) mg/dL BUN/Creatinine Ratio 10.00 L (12.00-20.00) Ratio Glucose 111 H (70-110) mg/dL Calcium 8.2 L (8.7-10.3) mg/dL Total Protein 5.8 L (6.2-8.2) g/dL Albumin 3.50 L (3.80-4.90) g/dL Albumin/Globulin Ratio 1.52 L (1.60-3.17) g/dL Microbiology - Last 24 Hours (Table) 01/21/20 22:45 Blood Culture - Preliminary Blood No Growth after 24 hours Assessment and Plan Plan: Assessment: #1. Covid 19 related pneumonia, with chest x-ray showing minimal vague infiltrate in the left mid lung, the patient denies any pulmonary complaints at this time #2. Complaints of fatigue, weakness, fever related to Covid 19 related infection #3. History of hyperlipidemia #4. Cholecystectomy, history of #5. Lifetime nonsmoker Plan: Continue oral Decadron, may discontinue the antibiotics, pro-calcitonin level came back negative, continue monitoring the bowel pattern, patient has remained stable from oxygenation perspective. Still has not had any pulmonary complaint s, we'll continue to monitor, follow-up chest x-ray in the morning I performed a history & physical examination of the patient and discussed their management with my nurse practitioner, Luana Brown. I reviewed the nurse practitioner's note and agree with the documented findings and plan of care. Lung sounds are positive for breath sounds. The findings and the impression was discussed with the patient. I attest to the documentation by the nurse practitioner. Time with Patient: Greater than 30
[2020-01-23] MEDS ORDERED: AZITHROMYCIN 500 MG TAB PO SCH (21:00)
[2020-01-23] MEDS: MULTIVITAMINS, THERA 1 EACH TAB PO SCH (21:03)
[2020-01-23] MEDS: ATORVASTATIN 10 MG TAB PO SCH (21:03)
[2020-01-24] MEDS: SODIUM CHLORIDE 0.9% 1,000 ML IV SCH (06:17)
[2020-01-24] MEDS ORDERED: PANTOPRAZOLE 40 MG TABLET PO SCH (07:30)
--- NOTE | 2020-01-24 08:39 | XR ---
EXAMINATION TYPE: XR chest 1V DATE OF EXAM: 01/24/2020 COMPARISON: 01/21/2020 HISTORY: Cough TECHNIQUE: Single frontal view of the chest is obtained. FINDINGS: Subsegmental areas of infiltrate are seen bilaterally and appear slightly progressed in th e right upper lobe. Heart size is stable. There is no pneumothorax or pleural effusion. Curvature of the spine. IMPRESSION: Bilateral areas of subsegmental consolidation with mild progression in the right upper l obe. This could secondary to pneumonia. Correlate clinically to exclude venous congestion.
[2020-01-24] MEDS: DEXAMETHASONE SOD PHOSPHATE 10 MG/ML 1 ML VIAL IV SCH (08:43)
[2020-01-24] MEDS: ZINC SULFATE 220 MG CAP PO SCH (08:44)
[2020-01-24] MEDS: ASCORBIC ACID 500 MG TAB PO SCH (08:44)
[2020-01-24] MEDS: CHOLECALCIFEROL 1,000 UNIT TAB PO SCH (08:44)
[2020-01-24] MEDS: ENOXAPARIN 40 MG/0.4 ML SYRINGE SQ SCH (08:44)
--- NOTE | 2020-01-24 13:57 | P.PN ---
Subjective Progress Note Date: 01/24/20 Principal diagnosis: Covid 19 pneumonitis 61-year-old white female patient of Dr. Hines who was admitted to the hospital on 01/21/2020 when she came in for evaluation of fatigue, however patient denied any symptoms of shortness of breath, fever, nausea, vomiting or rash. Her onset of symptoms was 7 days ago. Patient was evaluated in the emergency department on 01/20/2020, and was discharged home, her chest x-ray was clear of any pulmonary infiltrates, she had no shortness of breath or chest pain, her labs were stable, UA was unremarkable. On 01/22/2020 came back to the emergency department with complaints of fever, generalized weakness, and fatigue. Her chest x-ray on admission showed a small infiltrate in the lateral left mid lung field that appeared new compared to a previous chest x-ray completed on 01/20/2020. Her oxygenation has remained stable, room air pulse ox today is 96%, she still spiking fevers, with a T-max of 101.1 degrees Fahrenheit, hemodynamically stable. Her Covid 19 PCR was found positive. She denies any worsening of her symptoms. On 01/24/2020 patient seen in follow-up on a general medical surgical floor, she is calm and comfortable, resting in bed, she is on 2 L of oxygen and pulse ox of 96%, and she will continues on oral Decadron, vitamin C, zinc supplement, and empiric antibiotics in the form of azithromycin and Rocephin, she is on Lovenox at 40 mg twice a day, she's had no worsening of her symptoms, breathing comfor tably, has been afebrile for last 24 hours, last episode of fever was yesterday early in the morning with T-max of 101.1F, has been afebrile since. No chest discomfort or palpitations. All cultures have shown no growth. No nausea vomiting or diarrhea, in no acute events overnight, and discharged home is pending today Objective - Vital Signs Vital signs: Vital Signs Temp 98.9 F 01/24/20 05:00 Pulse 72 01/24/20 05:00 Resp 20 01/24/20 05:00 BP 143/72 01/24/20 05:00 Pulse Ox 96 01/24/20 05:00 Intake & Output 01/23/20 01/24/20 01/24/20 18:59 06:59 18:59 Intake Total 450 950 Balance 450 950 Intake: Intake, IV Titration 450 150 Amount Sodium Chloride 0.9% 1, 400 150 000 ml @ 50 mls/hr IV . Q20H DAVID Rx#:[id number] cefTRIAXone 1 gm In 50 Sodium Chloride 0.9% 50 ml @ 100 mls/hr IVPB DAILY DAVID Rx#:[id number] Oral 800 Other: # Voids 2 - Exam GENERAL EXAM: Alert, very pleasant, 69-year-old white female, on 2 L of oxygen, with a pulse of 96% comfortable in no apparent distress. HEAD: Normocephalic/atraumatic. EYES: Normal reaction of pupils, equal size. Conjunctiva pink, sclera white. NOSE: Clear with pink turbinates. THROAT: No erythema or exudates. NECK: No masses, no JVD, no thyroid enlargement, no adenopathy. CHEST: No chest wall deformity. Symmetrical expansion. LUNGS: Equal air entry with no crackles, wheeze, rhonchi or dullness. CVS: Regular rate and rhythm, normal S1 and S2, no gallops, no murmurs, no rubs ABDOMEN: Soft, nontender. No hepatosplenomegaly, normal bowel sounds, no guarding or rigidity. EXTREMITIES: No clubbing, no edema, no cyanosis, 2+ pulses and upper and lower extremities. MUSCULOSKELETAL: Muscle strength and tone normal. SPINE: No scoliosis or deformity SKIN: No rashes CENTRAL NERVOUS SYSTEM: Alert and oriented -3. No focal deficits, tone is normal in all 4 extremities. PSYCHIATRIC: Alert and oriented -3. Appropriate affect. Intact judgment and insight. - Labs CBC & Chem 7: 01/23/20 04:47 01/23/20 04:47 Labs: Microbiology - Last 24 Hours (Table) 01/21/20 22:45 Blood Culture - Preliminary Blood No Growth after 48 hours Assessment and Plan Plan: Assessment: #1. Covid 19 related pneumonia, with chest x-ray showing minimal vague infiltrate in the left mid lung, the patient denies any pulmonary complaints at this time #2. Complaints of fatigue, weakness, fever related to Covid 19 related infection #3. History of hyperlipidemia #4. Cholecystectomy, history of #5. Lifetime nonsmoker Plan: Patient has been stable overnight, has been afebrile in the last 24 hours, obtain home oxygen assessment, patient can continue on the oral Decadron for a total of 10 day course, she can continue on the vitamin C, zinc supplement, vitamin D and melatonin, her symptoms were mild and presentation, and have not progressed while in the hospital, no fever or chills, she is stable for discha rge home from pulmonary perspective, she was instructed to monitor her O2 saturations with the home pulse ox, and return for reevaluation should her symptoms worsen. I performed a history & physical examination of the patient and discussed their management with my nurse practitioner, Luana Brown. I reviewed the nurse practitioner's note and agree with the documented findings and plan of care. Lung sounds are positive for breath sounds. The findings and the impression was discussed with the patient. I attest to the documentation by the nurse practitioner. Time with Patient: Less than 30
--- NOTE | 2020-01-24 14:10 | P.DS ---
Providers Date of admission: 01/22/20 02:25 Expected date of discharge: 01/24/20 Attending physician: Orlando Mercado Consults: 01/22/20 02:25 Consult Physician Urgent Consulting Provider: Ant Valenzuela Reason/Comments: COVID Do you want consulting provider notified?: Yes, Notify in am Primary care physician: Maciel LiGhent [facility] Course: History of present illness This is a 69-year-old patient of Dr. Peterson who presented to the emergency room complaining of fatigue. Patient states that she has been extremely tired and fatigued for the last week. She came to the emergency room on due to the weakness and fatigue at that time she was not tested for Covid and did not experience any shortness of breath congestion and fever nausea vomiting or rash. Due to the increase in her weakness and fatigue the patient returned to the emergency room yesterday where she was found to have a positive Covid test. Patient still denies any shortness of breath congestion she did experience a fever yesterday. No nausea vomiting or rashes. At this time patient is resting comfortably stating that she is feeling much better compared to yesterday. Patient's past medical history is only significant for hyperlipidemia. 01/22: COVID-19 is positive. Patient has been febrile with temperature max 101.1, heart rate 86, blood pressure 136/70, pulse ox 96% on 2 L nasal cannula. WBC 5.6, hemoglobin 13, platelet count 142. Electrolytes normal. Creatinine 0.8. Patient is currently maintained on azithromycin, ceftriaxone, dexamethasone, Lovenox and vitamin supplements. Patient has been seen by pulmonary medicine and cleared for discharge. We'll plan to monitor overnight, repeat chest x-ray in the morning and anticipate discharge home on Thursday. 01/23: Chest x-ray this morning reveals bilateral areas of subsegmental consolidation with mild progression in the right upper lobe. This could be secondary to pneumonia. Correlate clinically. Patient denies having any shortness of breath. Patient has been seen by Dr. Pina and cleared for discharge with recommendations to monitor pulse ox at home. She has been afebrile for 24 hour period. Heart rate 72, blood pressure 143/72 and pulse ox 96% on 2 L nasal cannula. Patient's pulse ox was 91% with activity. Pro- calcitonin was negative. Patient will be discharged home today in stable condition. Assessment and plan: 1. Covid positive pneumonitis 2. Hypoxia related to Covid 19 3. Constitutional fatigue and weakness related to Covid 19, 4. Fever and chill related to Covid 19 5. Hyperlipidemia Discharge plan: Home Impression and plan of care have been directed as dictated by the signing physician. Daksha Cornelius nurse practitioner acting as scribe for signing physician. Patient Condition at Discharge: Stable Plan - Discharge Summary New Discharge Prescriptions: New Zinc Sulfate [Orazinc] 220 mg PO DAILY cap Ascorbic Acid [Vitamin C] 500 mg PO DAILY tab Cholecalciferol [Vitamin D3 (25 Mcg = 1000 Iu)] 2,000 unit PO DAILY tab Dexamethasone [Decadron] 6 mg PO DAILY #5 tablet Azithromycin [Zithromax Tri-Tiago (3 tabs)] 500 mg PO DAILY 5 Days #5 tab Continue Multivitamins, Thera [Multivitamin (formulary)] 1 tab PO HS Fluvastatin Sodium 20 mg PO HS Crispin Back And Body 1 - 2 tab PO Q12H PRN PRN Reason: Pain Discharge Medication List Fluvastatin Sodium 20 mg PO HS 01/20/20 [History] Multivitamins, Thera [Multivitamin (formulary)] 1 tab PO HS 01/20/20 [History] Crispin Back And Body 1 - 2 tab PO Q12H PRN 01/22/20 [History] Ascorbic Acid [Vitamin C] 500 mg PO DAILY tab 01/24/20 [Rx] Azithromycin [Zithromax Tri-Tiago (3 tabs)] 500 mg PO DAILY 5 Days #5 tab 01/24/20 [Rx] Cholecalciferol [Vitamin D3 (25 Mcg = 1000 Iu)] 2,000 unit PO DAILY tab 01/24/20 [Rx] Dexamethasone [Decadron] 6 mg PO DAILY #5 tablet 01/24/20 [Rx] Zinc Sulfate [Orazinc] 220 mg PO DAILY cap 01/24/20 [Rx] Follow up Appointment(s)/Referral(s): Maciel Peterson DO [Primary Care Provider] - 1 Week Ant Valenzuela DO [Doctor of Osteopathic Medicine] - 2 Weeks Discharge Disposition: HOME SELF-CARE
[2020-01-24 14:52] VITALS: BP 148/78; PULSE 78; RESP 18; TEMP 98
== END 2020-01-24 16:25 | disposition home or self-care (01) | DRG 177 ==
LOC: EC 21:40 → 4SSUR 01-22 02:25 → 6NMEDSUR 01-22 17:57
PROVIDERS: ADMIT Internal Medicine Geriatric Medicine; ATTEND Internal Medicine Geriatric Medicine
DX: U07.1 COVID-19 (principal); J12.89 Other viral pneumonia; E78.5 Hyperlipidemia, unspecified; R09.02 Hypoxemia; Z79.899 Other long term (current) drug therapy; Z90.49 Acquired absence of other specified parts of digestive tract; Z88.5 Allergy status to narcotic agent; Z87.19 Personal history of other diseases of the digestive system
CPT/HCPCS: 36415; 71045; 80053; 81003; 82728; 83605; 83615; 83735; 84145; 85025; 85379; 85610; 85730; 86140; 87040; 87502; 87635; 93005; 96361; 96365; 96366; 96372; 96375; 99285

== ENCOUNTER → 2020-10-16 | Outpatient (CLI) | payer MEDICARE ==
--- NOTE | 2020-10-18 13:42 | MM ---
Reason for exam: screening (asymptomatic). Last mammogram was performed 2 years and 3 months ago. History: Patient is postmenopausal and had first child at age 37. Family history of breast cancer in paternal aunt. Benign stereotactic core biopsy of the left breast, January 19, 2004. Benign excisional biopsy of the left breast, September 24, 2001. Core biopsy of the left breast. Physical Findings: A clinical breast exam by your physician is recommended on an annual basis and results should be correlated with mammographic findings. MG 3D Screening Mammo W/Cad Bilateral CC and MLO view(s) were taken. Prior study comparison: July 05, 2018, bilateral MG 3d screening mammo w/cad. July 02, 2017, bilateral MG 3d screening mammo w/cad. The breast tissue is almost entirely fat. No significant changes when compared with prior studies. ASSESSMENT: Benign, BI-RAD 2 RECOMMENDATION: Routine screening mammogram of both breasts in 1 year.
== END | disposition home or self-care (01) ==
LOC: RADMAMWWP 06:51
PROVIDERS: ATTEND Family Medicine
DX: Z12.31 Encounter for screening mammogram for malignant neoplasm of breast (principal)
CPT/HCPCS: 77063; 77067

== ENCOUNTER 2020-11-20 09:20 | Day surgery (SDC) | payer MEDICARE ==
[2020-11-16 09:38] VITALS: BMI 33.2
[~2020-11-20 09:20] MED LIST: LACTATED RINGERS 1,000 ML IV SCH; LIDOCAINE 1% (10MG/ML) FOR IV START INTRADERMA PRN
[2020-11-20 09:52] VITALS: RESP 16; TEMP 97.9
[2020-11-20] MEDS ORDERED: MIDAZOLAM 2 MG/2 ML VIAL ONE (10:13)
[2020-11-20] MEDS ORDERED: fentaNYL (PF) 50 MCG/ML 2 ML AMP ONE (10:13)
[2020-11-20] MEDS ORDERED: PROPOFOL 10 MG/ML 20 ML VIAL IV ONE (10:13)
--- NOTE | 2020-11-20 10:16 | P.GSHP ---
History of Present Illness H&P Date: 11/20/20 Chief Complaint: Positive cologuard 70-year-old female here today for colonoscopy. Had a recent stool study cologuard which was positive. Patient denies any gross bleeding. No family history of colon cancer. No bowel complaints. Past Medical History Past Medical History: Hyperlipidemia Additional Past Medical History / Comment(s): + COLOGUARD History of Any Multi-Drug Resistant Organisms: None Reported Past Surgical History: Cholecystectomy, Orthopedic Surgery Additional Past Surgical History / Comment(s): COLONOSCOPY. LT KNEE SX. BILAT BREAST BX-BOTH BENIGN Past Anesthesia/Blood Transfusion Reactions: Postoperative Nausea & Vomiting (PONV) Smoking Status: Former smoker - Past Family History Mother Family Medical History: Cancer Additional Family Medical History / Comment(s): Endometriosis, brain tumor Father Family Medical History: Renal Disease Additional Family Medical History / Comment(s): of renal failure Medications and Allergies Home Medications Medication Instructions Recorded Confirmed Type Ergocalciferol [Vitamin D2 (1250 1,250 mcg PO SA 11/16/20 11/20/20 History Mcg = 61157 Iu)] Fluvastatin Sodium [Lescol] 20 mg PO HS 11/16/20 11/20/20 History Allergies Allergy/AdvReac Type Severity Reaction Status Date / Time codeine Allergy Hallucinati Verified 11/20/20 09:39 ons Surgical - Exam Vital Signs Temp Pulse Resp BP Pulse Ox 97.9 F 81 16 161/78 95 11/20/20 09:50 11/20/20 09:50 11/20/20 09:50 11/20/20 09:50 11/20/20 09:50 Physical exam: General: Well-developed, well-nourished HEENT: Normocephalic, sclerae nonicteric Abdomen: Nontender, nondistended Extremities: No edema Neuro: Alert and oriented Assessment and Plan (1) Positive colorectal cancer screening using Cologuard test Narrative/Plan: Will proceed with colonoscopy Current Visit: Yes Status: Acute Code(s): R19.5 - OTHER FECAL ABNORMALITIES SNOMED Code(s): 480194084
--- NOTE | 2020-11-20 10:36 | P.PCN ---
Date of Procedure: 11/20/20 Procedure(s) Performed: PREOPERATIVE DIAGNOSIS: Positive cologuard POSTOPERATIVE DIAGNOSIS: Diverticulosis PROCEDURE: Colonoscopy ANESTHESIA: MAC SURGEON: Tee Gamboa M.D. SPECIMENS: None ENDOSCOPIC PROCEDURE: The patient was placed on the endoscopy table in the left decubitus position. The Olympus colonoscope was inserted into the anus and passed under direct visualization to the base of the cecum. The appendiceal orifice was visualized. From that point the scope was slowly withdrawn inspecting all surfaces carefully. There were no neoplastic inflammatory or polypoid lesions throughout the cecum, ascending, transverse, descending, sigmoid and rectum. There was moderate scattered diverticulosis noted. Digital rectal examination was normal. The patient was taken to the recovery room in stable condition per anesthesia guidelines. RECOMMENDATIONS: Resume diet. Follow-up colonoscopy in 5-10 years.
[2020-11-20 10:59] VITALS: BP 164/78; PULSE 81
== END 2020-11-20 11:19 | disposition home or self-care (01) ==
LOC: ORWHC2ENDO 09:20
PROVIDERS: ATTEND Surgery
DX: Z12.11 Encounter for screening for malignant neoplasm of colon (principal); E78.5 Hyperlipidemia, unspecified; Z87.891 Personal history of nicotine dependence; Z90.49 Acquired absence of other specified parts of digestive tract
CPT/HCPCS: 45378; J2250; J3010; J2704

== ENCOUNTER → 2022-03-28 | Outpatient (CLI) | payer MEDICARE ==
--- NOTE | 2022-03-31 08:06 | BD ---
EXAMINATION TYPE: Axial Bone Density DATE OF EXAM: 03/28/2022 COMPARISON: 07/02/2017 CLINICAL HISTORY: 71 years year old Female. ICD-10 CODE: M89.9 DISORDER OF BONE Height: 64.25 Weight: 210.7 FRAX RISK QUESTIONS: Alcohol (3 or more units per day): NO Family History (Parent hip fracture): NO Glucocorticoids (More than 3mos): NO History of Fracture in Adulthood: WRIST Secondary Osteoporosis: 1. Type 1 Diabetes: NO 2. Hyperthyroidism: NO 3. Menopause before 45: NO 4. Malnutrition: NO 5. Chronic liver disease: NO Rheumatoid Arthritis: NO Current Tobacco Use: NO RISK FACTORS HISTORY OF: Hip Fracture (Right/Left): NO When: Spine Fracture: NO When: History of Wrist Fracture: BILATERAL When: RT WRIST AGE 13, LT WRIST AGE 26 Surgery to Spine/Hip(right/left)/Wrist (right/left): NO Family History of Osteoporosis: MOTHER, MATERNAL GRANDMOTHER Active: NO Diet low in dairy products/other sources of calcium: YES Postmenopausal woman: YES Take estrogen and/or progesterone medications: NO Lost more than 2 inches in height since high school: NO Frequent falls: NO Poor Health: NO Hyperparathyroidism: NO Adrenal Insufficiency: NO MEDICATIONS: Prednisone or other steroids: NO Thyroid Medications: NO Osteoporosis Medications: NO Additional Medications: CHOLESTEROL MEDS, VIT D WEEKLY, EXAM MEASUREMENTS: Bone mineral densitometry was performed using the [employer] System. Bone mineral density as measured about the Lumbar spine is: ----- L1-L4(G/cm2): 1.150 T Score Values are as follows: ----- L1: -1.1 ----- L2: -0.9 ----- L3: 0.5 ----- L4: -0.1 ----- L1-L4: -0.2 Bone mineral density has: INCREASED 4.3 % since study of: 07/02/2017 Bone mineral density about the R hip (g/cm2): 0.758 Bone mineral density about the L hip (g/cm2): 0.823 T Score values are as follows: -----R Neck: -2.0 -----L Neck: -1.5 -----R Total: -1.6 -----L Total: -0.9 Bone mineral density has: DECREASED -3.1 % since study of: 07/02/2017 FRAX%s: The graph provided illustrates a 17.5% chance for a major osteoporotic fx and a 3.3% chance f or the hips probability for fx in 10 years time. IMPRESSION: Osteopenia (T Score between -2.5 and -1). There is slightly increased risk of fracture and the patient may be considered for treatment. Re-Screen 2-5 years. NOTE: T-SCORE=SD OF THE YOUNG ADULT MEAN.
--- NOTE | 2022-03-31 08:25 | MM ---
Reason for Exam: Screening (asymptomatic). Last mammogram was performed 1 year(s) and 5 month(s) ago. Patient History: Menarche at age 14. First Full-Term at age 37. Late child-bearing (after 30). Postmenopausal. Patient has history of breast feeding. Core Biopsy on the Left side. 09/24/2001, Benign Excisional Biopsy on the left side. 01/19/2004, Benign Stereotactic Core Biopsy on the left side. Paternal aunt had breast cancer, age 67. Risk Values: Ade 5 year model risk: 3.6%. NCI Lifetime model risk: 10.2%. Prior Study Comparison: 07/02/2017 Bilateral Screening Mammogram, [facility]. 07/05/2018 Bilateral Screening Mammogram, [facility]. 10/16/2020 Bilateral Screening Mammogram, [facility]. Tissue Density: There are scattered fibroglandular densities. Findings: Analyzed By CAD. There is no suspicious group of microcalcifications or new suspicious mass in either breast. Chronic nodularity within the right breast. Biopsy clip within the left breast. Overall Assessment: Benign, BI-RAD 2 Management: Screening Mammogram of both breasts in 1 year. A clinical breast exam by your physician is recommended on an annual basis and results should be correlated with mammographic findings. Electronically signed and approved by: Reese Diaz D.O.
== END | disposition home or self-care (01) ==
LOC: RADMAMWWP 15:50
PROVIDERS: ATTEND Family Medicine
DX: Z12.31 Encounter for screening mammogram for malignant neoplasm of breast (principal); M85.89 Other specified disorders of bone density and structure, multiple sites; Z78.0 Asymptomatic menopausal state; Z80.3 Family history of malignant neoplasm of breast; Z98.890 Other specified postprocedural states
CPT/HCPCS: 77063; 77067; 77080

== ENCOUNTER → 2023-04-02 | Outpatient (CLI) | payer MEDICARE ==
--- NOTE | 2023-04-03 19:38 | MM ---
Reason for Exam: Screening (asymptomatic). Last screening mammogram was performed 12 month(s) ago. Patient History: Menarche at age 14. First Full-Term at age 37. Late child-bearing (after 30). Postmenopausal. Patient has history of breast feeding. Core Biopsy on the Left side. 09/24/2001, Benign Excisional Biopsy on the left side. 01/19/2004, Benign Stereotactic Core Biopsy on the left side. Paternal aunt had breast cancer, age 67. Risk Values: Ade 5 year model risk: 3.6%. NCI Lifetime model risk: 9.8%. Prior Study Comparison: 07/05/2018 Bilateral Screening Mammogram, [facility]. 10/16/2020 Bilateral Screening Mammogram, [facility]. 03/28/2022 Bilateral MG 3D screening mammo w/cad, [facility]. Tissue Density: There are scattered fibroglandular densities. Findings: Analyzed By CAD. Chronic nodularity on the right. Microclip left breast from prior biopsy. There is no suspicious group of microcalcifications or new suspicious mass in either breast. Overall Assessment: Benign, BI-RAD 2 Management: Screening Mammogram of both breasts in 1 year. See note below in regards to patient's increased 5 year Ade score . Patient should continue monthly self-breast exams. A clinical breast exam by your physician is recommended on an annual basis. This exam should not preclude additional follow-up of suspicious palpable abnormalities. Note on Ade scores and lifetime risk: 1. A Ade score greater than 3% is considered moderate risk. If this is the case, consider specialist referral to assess eligibility for a risk reducing agent. 2. If overall lifetime risk for the development of breast cancer is 20% or higher, the patient may qualify for future screening with alternating mammogram and breast MRI. Electronically signed and approved by: Laina Singh M.D. Radiologist
== END | disposition home or self-care (01) ==
LOC: RADMAMWWP 16:13
PROVIDERS: ATTEND Family Medicine
DX: Z12.31 Encounter for screening mammogram for malignant neoplasm of breast (principal); Z80.3 Family history of malignant neoplasm of breast; Z78.0 Asymptomatic menopausal state
CPT/HCPCS: 77063; 77067

== ENCOUNTER → 2024-04-05 | Outpatient (CLI) | payer MEDICARE ==
--- NOTE | 2024-04-05 16:39 | BD ---
EXAMINATION TYPE: Axial Bone Density DATE OF EXAM: 04/05/2024 CLINICAL HISTORY: 73 years old Female. ICD-10 CODE: Z78.0 POST MENOPAUSE , Additional History: Height: 5 ft 5 in Weight: 213 FRAX RISK QUESTIONS: Alcohol (3 or more units per day): no Family History (Parent hip fracture): no Glucocorticoids (More than 3mos): no (Ex: prednisone, prednisolone, methylprednisolone, dexamethasone, and hydrocortisone). History of Fracture in Adulthood: yes Secondary Osteoporosis: 1. Type 1 Diabetes: no 2. Hyperthyroidism: no 3. Menopause before 45: no 4. Malnutrition: no 5. Chronic liver disease: no Rheumatoid Arthritis: no Current Tobacco Use: no RISK FACTORS HISTORY OF: History of Wrist Fracture: left When: 1979 Surgery to Spine/Hip(right/left)/Wrist (right/left): no MEDICATIONS: Thyroid Medications: none Osteoporosis Medications: none EXAM MEASUREMENTS: Bone mineral densitometry was performed using the [employer] System. Bone mineral density as measured about the Lumbar spine is: ----- L1-L4(G/cm2): 1.113 T Score Values are as follows: ----- L1: -1.4 ----- L2: -1.1 ----- L3: 0.4 ----- L4: -0.6 ----- L1-L4: -0.6 Z Score Values are as follows: ----- L1: -0.7 ----- L2: -0.5 ----- L3: 1.1 ----- L4: 0.1 ----- L1-L4: 0.1 Bone mineral density has: decreased -3.2 % since study of: 2022 Bone mineral density about the R hip (g/cm2): 0.762 Bone mineral density about the L hip (g/cm2): 0.854 T Score values are as follows: -----R Neck: -2.0 -----L Neck: -1.3 -----R Total: -1.9 -----L Total: -0.8 Z Score values are as follows: -----R Neck: -0.8 -----L Neck: -0.2 -----R Total: -1.0 -----L Total: 0.0 Bone mineral density has: decreased -2.2 % since study of: 2022 FRAX%s: The graph provided illustrates a 18.0 % chance for a major osteoporotic fx and a 3.7 % chance for the hips probability for fx in 10 years time. IMPRESSION: Osteopenia (T Score between -2.5 and -1). There is slightly increased risk of fracture and the patient may be considered for treatment. Re-Screen 2-5 years. NOTE: T-SCORE=SD OF THE YOUNG ADULT MEAN. [facility], , 04/05/2024 4:37 PM
--- NOTE | 2024-04-06 07:21 | MM ---
Reason for Exam: Screening (asymptomatic). Last screening mammogram was performed 12 month(s) ago. Patient History: Menarche at age 14. First Full-Term at age 37. Late child-bearing (after 30). Postmenopausal. Patient has history of breast feeding. Core Biopsy on the Left side. 09/24/2001, Benign Excisional Biopsy on the left side. 01/19/2004, Benign Stereotactic Core Biopsy on the left side. Paternal aunt had breast cancer, age 67. Risk Values: Ade 5 year model risk: 3.6%. NCI Lifetime model risk: 9.3%. Prior Study Comparison: 10/16/2020 Bilateral Screening Mammogram, [facility]. 03/28/2022 Bilateral MG 3D screening mammo w/cad, [facility]. 04/02/2023 Bilateral MG 3D screening mammo w/cad, [facility]. Tissue Density: The breasts are almost entirely fatty. Findings: Analyzed By CAD. Left breast biopsy clip. Right breast: There is no suspicious group of microcalcifications or new suspicious mass. Benign-appearing calcifications right breast. Left breast: There is no suspicious group of microcalcifications or new suspicious mass. Overall Assessment: Benign, BI-RAD 2 Management: Screening Mammogram of both breasts in [address] [facility] will attempt to contact patient to return for supplemental views and ultrasound if indicated. Patient should continue monthly self-breast exams. A clinical breast exam by your physician is recommended on an annual basis. This exam should not preclude additional follow-up of suspicious palpable abnormalities. Note on Ade scores and lifetime risk: 1. A Ade score greater than 3% is considered moderate risk. If this is the case, consider specialist referral to assess eligibility for a risk reducing agent. 2. If overall lifetime risk for the development of breast cancer is 20% or higher, the patient may qualify for future screening with alternating mammogram and breast MRI. [facility], , 04/06/2024 7:18 AM. Electronically signed and approved by: Ant Elliott DO
== END | disposition home or self-care (01) ==
LOC: RADBDWWP 15:33
PROVIDERS: ATTEND Family Medicine
DX: Z12.31 Encounter for screening mammogram for malignant neoplasm of breast (principal); R92.313 Mammographic fatty tissue density, bilateral breasts; M85.89 Other specified disorders of bone density and structure, multiple sites; Z80.3 Family history of malignant neoplasm of breast; Z78.0 Asymptomatic menopausal state
CPT/HCPCS: 77063; 77067; 77080